=== PATIENT | male | born 1960 | race Two or more races ===

== ENCOUNTER 2021-03-07 05:49 | Day surgery (SDC) | payer OTHER ==
[~2021-03-07 05:49] MED LIST: ALTACE2.5 MG PO; ENBREL25 MG/0.5; FOLIC ACID0.8 M1 PO; METFORMIN HCL500 M3 PO
== END 2021-03-07 13:05 | disposition home or self-care (01) ==
LOC: CIR.AMB 05:49
PROVIDERS: ATTEND Surgery Surgery of the Hand
DX: M65.841 Other synovitis and tenosynovitis, right hand (principal); Z20.822 Contact with and (suspected) exposure to COVID-19

== ENCOUNTER 2024-01-28 06:00 | Day surgery (SDC) | payer OTHER ==
[~2024-01-28] VITALS: Ht 175.3 cm; Wt 81.6 kg
[~2024-01-28 06:00] MED LIST changes: +LIPITOR20 MG PO; +RESTORIL15 MG PO
[2024-01-28] MEDS ORDERED: CEFAZOLIN SODIUM 1,000 MG VIAL ONE ×2 (08:10→08:21)
[2024-01-28] MEDS ORDERED: TRIAMCINOLONE ACETONIDE 40 MG/ML VIAL ONE (08:38)
== END 2024-01-28 11:20 | disposition home or self-care (01) ==
LOC: CIR.AMB 06:00
PROVIDERS: ATTEND Surgery Surgery of the Hand
DX: M67.844 Other specified disorders of tendon, left hand (principal); E11.9 Type 2 diabetes mellitus without complications; M06.9 Rheumatoid arthritis, unspecified; I10 Essential (primary) hypertension